=== PATIENT | female | born 2000 | race Caucasian/White ===

== ENCOUNTER 2018-10-15 17:47 | Inpatient (IN) | payer OTHER ==
[~2018-10-15] VITALS: Ht 162.6 cm; Wt 79.5 kg
[2018-10-15] MEDS ORDERED: CARBOPROST 250 MCG INJ IM PRN ×2 (18:00→23:30)
[2018-10-15] MEDS ORDERED: METHYLERGONOVINE 0.2 MG INJ IM PRN ×2 (18:00→23:30)
[2018-10-15] MEDS ORDERED: OXYTOCIN 30 UNITS/LR 500 ML IV PRN ×2 (18:00→23:30)
[2018-10-15] MEDS ORDERED: OXYTOCIN 30 UNITS/LR 500 ML IV SCH ×3 (18:00→23:01)
[2018-10-15] MEDS ORDERED: AMPICILLIN 2 GM/NS (PMX) 100 ML IV ONE (18:00)
[2018-10-15] MEDS ORDERED: MISOPROSTOL 200 MCG TAB PR PRN ×2 (18:00→23:30)
[2018-10-15] MEDS ORDERED: BUTORPHANOL 2 MG INJ IV PRN (18:00)
[2018-10-15] MEDS ORDERED: BUTORPHANOL 1 MG INJ IV PRN (18:00)
[2018-10-15] MEDS ORDERED: LIDOCAINE 1% (MPF) 30 ML INJ INJ PRN (18:00)
[2018-10-15] MEDS ORDERED: PREN1TAB71 PO (18:04)
[2018-10-15 18:05] VITALS: BP 137/83; Ht 162.6 cm; Wt 79.5 kg
--- NOTE | 2018-10-15 18:11 | TRIAGE ---
OB Triage Datetime Report Generated by CPN: 10/15/2018 18:11 Datetime: 10/15/2018 18:10 Time of Arrival: 10/15/2018 17:40 EGA: 40.0 Arrived By: Ambulatory Arrived From: Home Chief Complaint: uc's Movement: Present Contractions: Regular Time Contractions Began: 10/15/2018 15:00 Contractions: every 3 minutes Rupture of Membranes: Denies Vaginal Discharge: Denies Recent Sexual Intercouse: Denies Abdominal Trauma: Not Applicable Patient Complaints: Contractions Initial Plan: VE
[2018-10-15] MEDS: LACTATED RINGER'S 1,000 ML IV SCH ×2 (18:20→19:16)
[2018-10-15] MEDS ORDERED: AMPICILLIN 1 GM/NS (PMX) 50 ML IV SCH (22:00)
[2018-10-15] MEDS ORDERED: CEFAZOLIN 2 GM/50 ML (PMX) 50 ML IVPB ONE (22:00)
[2018-10-15] MEDS: LACTATED RINGER'S 1,000 ML IV* SCH (23:01)
--- NOTE | 2018-10-15 23:11 | LDN ---
Date/Time of Note Date/Time of Note DATE: 10/15/18 TIME: 23:03 Delivery Summary Weeks of Gestation Term gestation Placenta Delivered: Spontaneously Meconium: Thick Episiotomy: No Laceration repair: Second-degree laceration repaired with 2-0 and 3-0 Vicryl Anesthesia type: Local Estimated blood loss: 300 Sponge & Needle done & correct: Yes All needle counts correct: Yes Any foreign bodies felt in the: No Infant Delivery Information Sex Sex: male Apgars 1 Minute: 8 5 Minute: 9 Suctioning Nose & mouth suctioned at lor: Yes Delee suction performed: No Umbilical Cord Umbilical cord with: 3 Vessels Cord presentations: no nuchal cord Cord Blood was obtained: Yes Mother & Baby Disposition Disposition Baby's weight 8 pounds 4 ounces/ 3730 gr Mom & Baby to Maternity; Good: Yes Baby to NICU: No Copies To: CC: HORACIO IRVIN MD ; JUANY VALERIO MD Oct 15, 2018 23:11
[2018-10-15] MEDS ORDERED: MAGNESIUM HYDROXIDE 30ML CUP PO PRN (23:30)
[2018-10-15] MEDS ORDERED: SENNA/DOCUSATE NA (8.6MG/50MG) TAB PO PRN (23:30)
[2018-10-15] MEDS ORDERED: ACETAMINOPHEN 325 MG TAB PO PRN ×2 (23:30)
[2018-10-15] MEDS ORDERED: ONDANSETRON 4 MG INJ IV PRN (23:30)
[2018-10-15] MEDS ORDERED: DIBUCAINE 1% 30 GM OINT TOP PRN (23:30)
[2018-10-15] MEDS ORDERED: LANOLIN HPA 1 PKT TOP PRN (23:30)
[2018-10-15] MEDS: IBUPROFEN 600 MG TAB PO PRN (23:47)
[2018-10-16 00:10] VITALS: BP 131/68; PULSE 94; RESP 18
[2018-10-16 03:57] VITALS: BP 110/59; PULSE 94; RESP 18
[2018-10-16] MEDS: BENZOCAINE 20% 56 ML SPRAY TOP PRN (05:31)
[2018-10-16] MEDS: IBUPROFEN 600 MG TAB PO PRN ×2 (05:31→17:42)
[2018-10-16] MEDS: WITCH HAZEL/GLYCERIN PAD PR PRN (05:31)
[2018-10-16] MEDS: CEFAZOLIN 1 GM/50 ML (PMX) 50 ML IVPB SCH ×3 (05:32→22:16)
[2018-10-16] MEDS: LACTATED RINGER'S 1,000 ML IV* SCH ×3 (07:01→22:58)
[2018-10-16 08:15] VITALS: BP 111/72; PULSE 86; RESP 18
[2018-10-16 16:00] VITALS: BP 117/61; PULSE 75; RESP 18
[2018-10-16 19:50] VITALS: BP 119/69; PULSE 68; RESP 18
[2018-10-17 04:35] VITALS: BP 113/55; PULSE 77; RESP 18
[2018-10-17] MEDS: LACTATED RINGER'S 1,000 ML IV* SCH (07:01)
[2018-10-17 08:00] VITALS: BP 119/74; PULSE 67; RESP 18
--- NOTE | 2018-10-17 09:17 | PD.PPDC ---
RN INTENSIVE CARE UNIT Discharge Instruction Condition [id number] Patient Condition: Bybrq1x Good Diet [id number] Diet: Kwzpp2y Resume Regular Diet Activity/Restrictions [id number] Activity: Evchn1b Normal Activity May Shower Qgzss2Ga Restrictions: Qvnvc7k No Sexual Activity Nothing in the Vagina No [place] No Tampons, douche Follow-up Follow-up with Physician: 6, Week/Weeks Return to clinic for [id number] [employer]ICE PRESIDENT Instructions: Dcfan4u Fever greater than 101 Chills Worsening abdominal pain Excessive Vaginal Bleeding [id number] OB Instructions: Saauw6v Breast Tenderness Depression ERENDIRA LOPEZ MD Oct 17, 2018 09:17
--- NOTE | 2018-10-17 09:17 | DS ---
Date/Time of Note Date/Time of Note DATE: 10/17/18 TIME: 09:16 Obstetrical Discharge Record Final Diagnosis Final Diagnosis: Term delivered Vaginal Delivery Obstetrical Delivery: Spontaneous, Laceration, Repaired Complications Augmentation: No Induction: No Condition on Discharge Physical Assessment Last Vitals: T=98.4 BP 113/55 Voiding: Yes Bowel Movement: Yes Breast: Soft, non-tender Fundus: Firm Calf Tenderness: No Patient Condition: Good ERENDIRA LOPEZ MD Oct 17, 2018 09:17
[2018-10-17] MEDS: BENZOCAINE 20% 56 ML SPRAY TOP PRN (13:39)
[2018-10-17] MEDS: WITCH HAZEL/GLYCERIN PAD PR PRN (13:39)
--- NOTE | 2018-10-17 19:57 | QN ---
Documentation Comment This is a late entry note foe 10/16/2018 day #1 Status post Patient stable and afebrile Tolerating regular diet and ambulating and voiding without any difficulties Vital signs stable VS - Last 72 Hours, by Label Date Temp Pulse Resp B/P (MAP) Pulse Ox O2 O2 Flow FiO2 Time Delivery Rate 10/17/18 97.7 67 18 119/74 Room Air 08:00 (89) 10/17/18 98.4 77 18 113/55 Room Air 04:35 (74) 10/16/18 98.0 68 18 119/69 Room Air 19:50 (86) 10/16/18 97.7 75 18 117/61 Room Air 16:00 (79) 10/16/18 98.5 86 18 111/72 Room Air 08:15 (85) 10/16/18 99.4 94 18 110/59 Room Air 03:57 (76) 10/16/18 98.6 94 18 131/68 Room Air 00:10 (89) 10/15/18 98.2 137/83 18:05 (101) Hematology - 72 Hrs Test 10/15/18 18:25 10/16/18 06:25 Hematocrit 34.8 % (37.0-47.0) L 29.9 % (37.0-47.0) L Hemoglobin 11.8 g/dl (12.0-16.0) L 10.1 g/dl (12.0-16.0) L Mean Corpuscular 30.2 pg (29.0-33.0) 29.9 pg (29.0-33.0) Hemoglobin Mean Corpuscular 33.9 g/dl (32.0-37.0) 33.8 g/dl (32.0-37.0) Hemoglobin Concent Mean Corpuscular Volume 89.0 fl (72.0-104.0) 88.5 fl (72.0-104.0) Mean Platelet Volume 11.2 fl (7.4-10.4) H 11.3 fl (7.4-10.4) H Platelet Count 175 10^3/UL (140-415) 124 10^3/UL (140-415) #L Red Blood Count 3.91 10^6/ul (4.20-5.40) 3.38 10^6/ul (4.20-5.40) L L Red Cell Distribution 13.3 % (11.5-14.5) 13.2 % (11.5-14.5) Width White Blood Count 12.5 10^3/ul (4.8-10.8) 14.8 10^3/ul (4.8-10.8) H H Abdomen soft, fundus firm Perineum intact Extremities nontender Assessment and plan; Patient stable and doing well Continue with routine care JUANY VALERIO MD Oct 17, 2018 19:57
--- NOTE | 2018-10-18 14:04 | DELSUM ---
Delivery Summary A-C Datetime Report Generated by CPN: 10/18/2018 14:04 DELIVERY PERSONNEL Sounding Device Operator: Boone, Mary MATERNAL INFORMATION Delivery Anesthesia: Local Medications in Delivery: Pitocin Delivery QBL (ml): 300 Maternal Complications: None LABOR SUMMARY EDC: 10/15/2018 00:00 No. Babies in Womb: 1 Attempted: No Labor Anesthesia: None LABOR INFORMATION Reason for Induction: Not Applicable Onset of Labor: 10/15/2018 18:00 Cervical Ripening Agents: Other Other Ripening Agents: N/A Oxytocin: N/A Group B Beta Strep: Positive Antibiotics # of Doses: 1 Antibiotics Time of Last Dose: 10/15/2018 18:20 Steroids Given: None Reason Steroids Not Administered: Not Applicable MEMBRANES Membranes Rupture Method: Spontaneous Rupture of Membranes: 10/15/2018 20:18 Length of Rupture (hr): 1.10 Amniotic Fluid Color: Heavy Meconium Amniotic Fluid Amount: Moderate Amniotic Fluid Odor: None STAGES OF LABOR Stage 3 hr: 0 Stage 3 min: 2 Total Time in Labor hr: 3 Total Time in Labor min: 26 VAGINAL DELIVERY Episiotomy: None Laceration Extension: Second Degree Laceration Type: Perineal Other Laceration: N/A Laceration Repair: Yes Initial Vag Sponge Count: 10 Final Vag Sponge Count: 10 Initial Vag Sharps Count: 1 Final Vag Sharps Count: 3 Sponge Count Correct: Yes Sharps Count Correct: Yes Count Comment: 2-[address]-1 and 4-0 Chromic SH added BABY A INFORMATION Delivery Date/Time: 10/15/2018 21:24 Method of Delivery: Vaginal Born in Route : No : N/A Forceps: N/A Vacuum Extraction: N/A Shoulder Dystocia : No SHOULDER DYSTOCIA BABY A Infant Delivery Date/Time: 10/15/2018 21:24 PRESENTATION/POSITION BABY A Presentation: Cephalic Cephalic Presentation: Vertex Vertex Position: Left Occipital Anterior Breech Presentation: N/A PLACENTA INFORMATION BABY A Placenta Delivery Time : 10/15/2018 21:26 Placenta Method of Delivery: Expressed Placenta Status: Delivered SCORES BABY A Heart Rate 1 min: >100 bpm Resp Effort 1 min: Good Cry Reflex Irritability 1 min: Cough/Sneeze/Pulls Away Muscle Tone 1 min: Active Motion Color 1 min: Blue/Pale Resuscitation Effort 1 min: Tactile Stimulation SCORE 1 MIN: 8 Heart Rate 5 min: >100 bpm Resp Effort 5 min: Good Cry Reflex Irritability 5 min: Cough/Sneeze/Pulls Away Muscle Tone 5 min: Active Motion Color 5 min: Body [place], Extremit Blue Resuscitation Effort 5 min: N/A SCORE 5 MIN: 9 INFANT INFORMATION BABY A Gestational Age at Delivery: 40.0 Gestational Status: Full Term- 39- 40.6 Weeks Outcome : Liveborn Infant Condition : Stable Sex: Male IDENTIFICATION/MEDS BABY A ID Band Number: [id number] ID Band Location: Right Leg; Left Arm Sensor Applied: Yes Sensor Number: [id number] Sensor Location : Cord Clamp Vitamin K Given : Not Given Erythromycin Given: Not Given WEIGHT/LENGTH BABY A Infant Birthweight (gm): 3730 Weight (lb): 8 Infant Weight (oz): 4 Length (in): 20.00 Infant Length (cm): 50.80 CORD INFORMATION BABY A No. Cord Vessels: 3 Nuchal Cord : N/A Infant Suction: Mouth; Nose; Pharynx
--- NOTE | 2018-10-18 21:46 | NSTRPT ---
NST Information Datetime Report Generated by CPN: 10/18/2018 21:46 Datetime: 10/15/2018 10:20 NST Information EGA: 40.0 Datetime: 10/15/2018 10:14 Test Number: 1 Time on Monitor: 10/15/2018 10:14 Time off Monitor: 10/15/2018 11:13 NST Duration (Min): 59 Reason for NST: Other Reason for NST Other: Post Dates Test and Monitor Explained: Monitor Explained; Test Explained; Verbalized Understanding Pulse: 78 Resp: 18 SBP: 125 DBP: 77 Test Evaluation NST Interventions: Acoustic Stimulation Patient States Movement: Present Contraction Frequency: X2 FHR Baseline : 120 Variability: Moderate 6-25bpm Accelerations: 15X15 Decelerations: None FHR Category: Category I NST Results: Reactive Comments: To u/s-SIM 13.4 CM, CEPHALIC. FAS AT 1105 WITH ACCEL NOTED FROM 120 TO 140 Electronically Signed By E-Signature: with User ID: [id number]
--- NOTE | 2018-10-19 14:12 | HP ---
Date/Time of Note Date/Time of Note DATE: 10/19/18 TIME: 14:05 OB - History Hx of Present Free Text/Dictation 18 y.o here at the triage with c/o UC's q3min apart at 40weeks with intact membrane. initial VE /-2 Her visit initiated at 29w5d, had unevenful course. EFM CAT I tracing GBS positive Admitted for expectant management. Chief Complaint: UC's Estimated Due Date: Oct 15, 2018 : 2 Para: 1 Spontaneous : 0 Therapeutic : 0 Care: Limited Care Ultrasounds: Normal mid trimester US Obstetrical Complications: None Medical Complications: None Past Family/Social History * Past Medical, Surgical, Family and Obstetric Histories reviewed from chart. Blood Type: A+ Rubella: immune RPR/VDRL: Negative GBS Status: Positive HBsAG: Negative OB Admission Exam Vital Signs Vital Signs Vital Signs Date Temp Pulse Resp B/P (MAP) Pulse Ox O2 O2 Flow FiO2 Time Delivery Rate 10/17/18 97.7 67 18 119/74 Room Air 08:00 (89) Physical Exam HEENT: WNL Heart: Rhythm Normal Lungs: Clear, Equal Abdomen: WNL Extremities: Normal Reflexes: Normal Cervical Dilatation: 5cm Effacement: Other (90%) Station: -2 Membranes: Intact Amniotic Fluid: Unevaluable Heart Rate: 140's Accelerations: Accelerations Present Decelerations: No Decelerations Varibility: Moderate Contractions on Admission: < 5 Minutes Apart Intensity: Moderate OB Assessment/Plan Reason for admission: active labor Other Assessment: IUP 40weeks Plan: Expectant Management SAMANTHA JACOB MD Oct 19, 2018 14:12
== END 2018-10-17 14:03 | disposition home or self-care (01) | DRG 807 ==
LOC: OBT 17:47 → L-D 17:48 → OBT 17:53 → L-D 17:53 → PP1 10-16 00:09
PROVIDERS: ADMIT Specialist; ATTEND Specialist
PROC: 10E0XZZ Delivery of Products of Conception, External Approach (ICD-10-PCS; principal; 2018-10-15)
PROC: 0KQM0ZZ Repair Perineum Muscle, Open Approach (ICD-10-PCS; 2018-10-15)
PROC: 4A1HXCZ Monitoring of Products of Conception, Cardiac Rate, External Approach (ICD-10-PCS; 2018-10-15)
DX: O48.0 Post-term pregnancy (principal); Z37.0 Single live birth; Z3A.40 40 weeks gestation of pregnancy; O99.824 Streptococcus B carrier state complicating childbirth; O70.1 Second degree perineal laceration during delivery
CPT/HCPCS: 85025; 85610; 85730; 86592; 86850; 86900; 86901; 87340; 88307; 99464; G0463; J0290; J0595; J0690; J2590; J7120